=== PATIENT | male | born 1960 | race African-American/Black ===

== ENCOUNTER 2016-08-20 10:27 | Outpatient (CLI) ==
--- NOTE | 2016-08-20 11:24 | DI ---
EXAM: Chest two views HISTORY: Cough COMPARISON: 06/15/2013 TECHNIQUE: Two views of the chest were performed FINDINGS: The lungs are clear. There is no pleural effusion or pneumothorax. The heart is normal in size. The mediastinal contour is normal. There are no acute abnormalities of the bones. IMPRESSION: No acute cardiopulmonary process.
== END 2016-08-20 10:28 | disposition home or self-care (01) ==
LOC: RAD 10:27
PROVIDERS: ATTEND Emergency Medicine
DX: R05 Cough (principal)

== ENCOUNTER 2017-12-22 10:08 | Observation (INO) ==
[2017-12-22] MEDS ORDERED: SOLU-CORTEF 250 MG IVP STA (11:00)
[2017-12-22] MEDS ORDERED: TORADOL IVP STA (11:00)
[2017-12-22] MEDS: DEXTROSE 5%-1/2NS IV SOLUTION 1,000 ML IV SCH ×2 (11:50→20:23)
[2017-12-22] MEDS: DOXYCYCLINE HYCLATE PO SCH ×2 (11:58→20:22)
[2017-12-22 12:15] VITALS: BMI 33.9
--- NOTE | 2017-12-22 14:32 | DI ---
Exam: Two views of the chest. Comparison: 08/20/2016. Reason for exam: Weakness. FINDINGS: No pneumothorax, pleural effusion, or focal consolidation. The cardiac silhouette is not enlarged. The imaged osseous structures appear grossly unremarkable without acute fracture. Impression: No acute cardiopulmonary process.
[2017-12-22] MEDS ORDERED: ULTRAM PO STA (21:53)
[2017-12-22] MEDS ORDERED: NORVASC PO STA (21:54)
[2017-12-22] MEDS ORDERED: VASOTEC IV IVP STA (21:54)
[2017-12-22] MEDS ORDERED: TORADOL ONE (22:53)
[2017-12-22] MEDS: TORADOL IVP SCH (23:02)
[2017-12-23] MEDS: DEXTROSE 5%-1/2NS IV SOLUTION 1,000 ML IV SCH (04:20)
[2017-12-23] MEDS ORDERED: TORADOL IVP PRN (05:58)
[2017-12-23] MEDS: TORADOL IVP SCH (06:13)
[2017-12-23] MEDS: DOXYCYCLINE HYCLATE PO SCH (08:25)
--- NOTE | 2017-12-23 08:45 | PCM.PROG ---
Attending Provider: ATTENDING PROVIDER: Dr. PARVEEN CROSS This patient is seen with Citlaly Eldridge, Nurse Practitioner. DATE OF SERVICE: 12/23/17 SUBJECTIVE: This 57 year old BLACK/ M was hospitalized 12/22/17. The patient is alert, lying in bed. He states myalgia is much better. Dr. Cross has done echo today. Evaluation for possible rhabdomyolysis has been negative. No evidence of any muscle breakdown. The patient states he would like to return home. He will continue to hold cholesterol medications Lipitor and Tricor. REVIEW OF SYSTEMS: CONSTITUTIONAL: Positive for fatigue. No night sweats. No malaise, lethargy. No fever or chills. HEENT: Eyes: No visual changes. No eye pain. No eye discharge. ENT: No runny nose. No epistaxis. No sinus pain. No odynophagia. No congestion. RESPIRATORY: No cough, no congestion. No hemoptysis. No shortness of breath. CARDIOVASCULAR: No angina symptoms. No CHF symptoms. No atypical chest pain for CAD. No palpitations. No orthopnea.. GASTROINTESTINAL: No abdominal pain. No nausea or vomiting. No diarrhea or constipation. No hematemesis. No hematochezia. GENITOURINARY: No urgency. No frequency. No dysuria. No hematuria. No obstructive symptoms. No discharge. No pain. No significant abnormal bleeding. MUSCULOSKELETAL: Positive for myalgia. NEUROLOGICAL: Awake, alert, oriented to time, place and person. No headache. No neck pain. No syncope. No seizures. No dizziness. PSYCHIATRIC: Not anxious. No depression. No suicidal thoughts. No homicidal thoughts. SKIN: No rash. No lesions. No wounds. ENDOCRINE: No unexplained weight loss. No weight gain. HEMATOLOGIC/LYMPHATIC: No anemia. No purpura. No petechiae. No prolonged or excessive bleeding. No palpable lymph nodes. PHYSICAL EXAMINATION: GENERAL: The patient is awake, alert and oriented, lying in bed in no distress. VITAL SIGNS: Temperature 97.5 F, Pulse 82, Respiratory Rate 23, BP 142/89, Pulse Ox 97% HEENT: Head normocephalic, atraumatic. Eyes: Extraocular muscles are intact. Pupils are equal, round and reactive to light and accommodation. Ears: No lesions. Nose appeared normal. Throat: No exudate or erythema. NECK: Supple. No JVD, no carotid bruit. No lymphadenopathy or thyromegaly. LUNGS: Diminished breath sounds bilaterally. Clear to auscultation. Percussion note normal. Chest symmetrical. HEART: S1, S2, no S3. No murmurs. No cyanosis or clubbing. No ascites. Pulses: Dorsalis pedis and posterior tibial pulses +1 to +2 both sides. ABDOMEN: Soft. Non-tender. Bowel sounds active. No CVA tenderness. No mass felt. EXTREMITIES: No edema. Full range of motion of all extremities, equal. NEUROLOGIC: No focal deficit. Cranial nerves II through XII are grossly intact. No headache, no double vision or headache. SKIN: Not dry. Intact. Turgor-normal. LYMPHATIC: No palpable lymph nodes/no lymphedema. MUSCULOSKELETAL: Normal joints with no swelling. Muscle tone is normal. LAB REVIEW: 12/23/17 04:30 12/23/17 04:30 12/23/17 04:30: Sodium 138, Potassium 4.0, Chloride 106, Carbon Dioxide 25, Anion Gap 11.0, BUN 13, Creatinine 0.84, Estimated GFR (MDRD) 114.00, BUN/ Creatinine Ratio 15.47, Glucose 117 H, Calcium 8.9, Total Bilirubin 0.4, AST 31 , ALT 37, Alkaline Phosphatase 46 L, Total Creatine Kinase 69, Total Protein 6.6 , Albumin 3.4, Globulin 3.2, Albumin/Globulin Ratio 1.06 12/23/17 04:30: WBC 5.02, RBC 4.21 L, Hgb 13.1 L, Hct 39.0 L, MCV 92.6, MCH 31.1 H, MCHC 33.6, RDW Coeff of Andreina 12.8, Plt Count 168, Immature Gran % (Auto) 0.2, Neut % (Auto) 60.6, Lymph % (Auto) 25.1, Frio % (Auto) 12.7 H, Eos % (Auto ) 1.0, Baso % (Auto) 0.4, Immature Gran # (Auto) 0.0, Neut # (Auto) 3.0, Lymph # (Auto) 1.3, Frio # (Auto) 0.6, Eos # (Auto) 0.1, Baso # (Auto) 0.0 12/22/17 17:03: Urine Color Yellow, Urine Clarity Clear, Urine pH 7.0, Ur Specific Hastings 1.015, Urine Protein Negative, Urine Glucose (UA) Negative, Urine Ketones Negative, Urine Blood Negative, Urine Nitrite Negative, Urine Bilirubin Negative, Urine Urobilinogen 1.0, Ur Leukocyte Esterase Negative 12/22/17 11:15: ESR 7 12/22/17 11:15: Sodium 136, Potassium 3.7, Chloride 103, Carbon Dioxide 23, Anion Gap 13.7, BUN 10, Creatinine 0.83, Estimated GFR (MDRD) 116.00, BUN/ Creatinine Ratio 12.04, Glucose 98, Calcium 9.2, Total Bilirubin 0.6, AST 37, ALT 39, Alkaline Phosphatase 52, Total Creatine Kinase 77, Total Protein 6.9, Albumin 3.7, Globulin 3.2, Albumin/Globulin Ratio 1.16 12/22/17 11:15: WBC 4.26, RBC 4.25 L, Hgb 13.3 L, Hct 38.7 L, MCV 91.1, MCH 31.3 H, MCHC 34.4, RDW Coeff of Andreina 12.9, Plt Count 172, Immature Gran % (Auto) 0.5, Neut % (Auto) 52.3, Lymph % (Auto) 28.6, Frio % (Auto) 14.3 H, Eos % (Auto ) 3.1, Baso % (Auto) 1.2, Immature Gran # (Auto) 0.0, Neut # (Auto) 2.2, Lymph # (Auto) 1.2, Frio # (Auto) 0.6, Eos # (Auto) 0.1, Baso # (Auto) 0.1 12/22/17 11:15: Lactic Acid 9.8 12/22/17 11:15: TSH 0.807 12/22/17 11:15: Puncture Site R rad, O2 Saturation 96.0, ABG pH 7.477 H, ABG pCO2 35.5, ABG pO2 74.0 L, ABG HCO3 26.2 H, ABG Total CO2 27, ABG Base Excess 3 H, Gabriel Test +, FiO2 % 21.0 ASSESSMENT: 1. Heat exhaustion 2. Dehydration 3. Severe myalgia 4. Dyslipidemia 5. Severe myalgia 6. Smoker PLAN: 1. Discharge home. 2. Hold Lipitor and Tricor for at least one week. 3. No work until released by Dr. Cross. 4. Will see Dr. Cross in his office on Wednesday. 5. Continue home medications with increased fluids. Plan and coordination of the patient's care discussed in the presence of Ham Pumper and nurse. CONDITION: Stable SCRIBED BY: RAINA ARZOLA [employer] scribed while in presence of service performed by Dr. Cross/Citlaly Eldridge APRN on 12/23/17 ([id number])
[2017-12-23] MEDS ORDERED: COZAAR PO SCH (09:00)
[2017-12-23] MEDS ORDERED: LEXAPRO PO SCH (09:00)
[2017-12-23] MEDS ORDERED: ZEBETA PO SCH (09:00)
[2017-12-23] MEDS ORDERED: NON-FORMULARY MEDICATION (Escitalopram Oxalate [Escitalopram Oxalate] 20 MG) PO SCH (09:00)
--- NOTE | 2017-12-23 10:01 | HP ---
DATE OF SERVICE: 12/22/17 REASON FOR HOSPITALIZATION/HISTORY OF PRESENT ILLNESS: Myalgia started 3-6 days. Muscle ache all over x 24 hours, bad. Mainly yesterday. Left chest post axillary arch-insect bite. Weakness/Tired x2 weeks with 1/2cm scab with redness. Last night 9 on scale of 1-10. PAST MEDICAL HISTORY: Cardiac disorders Hypotension Depression Diabetes Mellitus Dyslipidemia Osteoarthritis Obesity Tobacco use PAST SURGICAL HISTORY: Childhood tonsils Vasectomy REVIEW OF SYSTEMS: CONSTITUTIONAL: No fever, no fatigue. HEENT: No sinus drainage, no sore throat. RESPIRATORY: No cough, no congestion. CARDIOVASCULAR: No atypical chest pain for coronary artery disease. No angina , CHF symptoms, palpitations or shortness of breath. GASTROINTESTINAL: No melena or abdominal pain. No GERD. No appetite, thia am not good appetite. GENITOURINARY: No hematuria, no prostatism, no polyuria. DIRECT SUPPORT WORKER: No blackout, no dizziness, no headache, no double vision. Myalgia. MUSCULOSKELETAL: Osteoarthritis pain, no joint swelling. ENDOCRINE: No weight loss, no weight gain. SKIN: Not dry, no rash. PSYCHIATRIC: Not anxious, no depression, no suicidal thoughts, no homicidal thoughts. SOCIAL HISTORY: Marital Status: , 22 years 3 children 2 boys; 29 and 26 and one daughter 21. Alcohol Usage: Yes 2 beers a week Tobacco Usage: Yes one pack per day. FAMILY HISTORY: Father -unknown Mother -auto accident Brother/Sister- The patient was adopted unsure of siblings. MEDICATIONS: Losartan 100mg PO daily Tricor 145mg PO daily Lexapro 20mg PO daily Aspirin 81mg PO daily Lipitor 80mg PO daily Zebeta 10mg PO daily Bonny PO daily ALLERGIES: Penicillin Wellbutrin PHYSICAL EXAMINATION: V/S: Pulse 87, blood pressure 162/100, temperature 98.2, oxygen saturation 97%. GENERAL APPEARANCE: Oriented times three. HEENT: Normal. NECK: No JVP, no bruits. RESPIRATORY: Lungs are clear. Mild redness with insect bite on left post axillary arch. CARDIOVASCULAR: S1, S2, no S3, no murmurs. No cyanosis, clubbing. No ascites. GI/ABDOMEN: No tenderness. Bowel sounds are active. EXTREMITIES: edema, pulses +1, equal. DIRECT SUPPORT WORKER: Deep tendon reflexes, sensory, motor and gait all normal. RECTAL: 10/14 Dr. Tolentino/PROSTATE: 03-17(1.0) . LABS: CK 77, Alkaline phosphatase normal, hgb 13, hct 38, WBC 4,200 normal differential, sedrate 7, TSH normal, Lactic acid normal, Creatinine 0.8, BUN 10 , liver enzymes are negative. ABG pO2 74, pCO2 35, pH 7.47 with 96% saturation. ASSESSMENT: 1. Severe Myalgia-several day, rule out Rhabdo- Ankles, calf, shoulders/weakness 2. Insect bite left chest, post axillary line- 2 weeks. Herpes Zoster 3. All night pain-aching 8to 9 on scale 1-10 4. Diabetes Mellitus type II, A1c 5.6 on 08/22 5. Hypertension 6. Dyslipidemia 7. Depression 8. Osteoarthritis 9. Obesity, BMI 10. Hyperglycemia 11.Smoker PLAN: 1. Admit observation 2. Diet regular 3. Sed rate 4. Telemetry x 24 hour 5. CBC, CMP, CK and TSH today 6. ABG 7. Lactic acid level 8. X-ray chest, today 9. EKG, today 10.1000 cc D5 1/2 normal saline 11.Doxycycline 100mg PO twice a day 12.Blood cultures x2 13.Lyme screening 14.Daily CBC, CMP and CK level 15.U/A 16.Toradol 30mg IV now 17.125mg Solu-Cortef IV times one 18.Continue all home medication except Lipitor and Tricon TIME SPENT: More than 70 minutes. MTDD
[2017-12-23 10:17] VITALS: BP 158/95; TEMP 97.9
--- NOTE | 2017-12-24 09:14 | ECHO2D ---
Date of Exam: 12/23/17 Ordering Physician: DR. PARVEEN CROSS Room #: 108 Reason for Echo: WEAKNESS, HTN, SOB, DYSLIPIDEMIA M-Mode Normal Adult Results LV Dimensions Normal Adult Results AoV Opening excursions >1.6 >1.6 LVEDD-base- 3.5-5.8 3.9 Ao root dimensions 2.0-3.7 3.7 LVESD-base- 3.1-4.6 L. Atrium dimensions 1.9-3.8 4.4 Post. Wall thickness 0.8-1.1 1.2 IV septum (thickness) 0.7-1.2 1.9 Post. Wall excursion 0.72-1.3 NORMAL Septal motion NORMAL Systolic motion R. Ventricular cavity 1.5-2.0 NORMAL LVEF 60% 58% Paradoxical septal wall motion NORMAL 2-D : 2-D M Mode Echocardiogram was performed using apical four chamber and left parasternal long and short axis views. Mitral, tricuspid and aortic valves appear to be normal. Contractility of the left ventricle seems to be normal, so is the cavity size. Enlarged left atrial cavity. Aortic root appears to be normal. There is no pericardial effusion. There is no thrombus noted in the left ventricular or left aortic cavity. No mitral valve prolapse noted. M-MODE: MV: NORMAL AV: NORMAL TV: NORMAL PV: CHAMBER SIZE: ENLARGED LEFT ATRIAL CAVITY WALL MOTION: NORMAL PERICARDIUM: NORMAL INTERPRETATION: 1. LEFT VENTRICULAR HYPERTROPHY WITH ENLARGED LEFT ATRIAL CAVITY 2. NORMAL LEFT VENTRICULAR CONTRACTILITY 3. NORMAL VALVES MTDD
--- NOTE | 2017-12-27 11:10 | DS ---
DATE OF SERVICE: 12/23/17 FINAL DIAGNOSIS: 1. Myalgia with fatigue and weakness most likely from heat exhaustion 2. Insect bite left chest, post axillary line-2 weeks. Herpes Zoster 3. All night pain-aching 4. Diabetes Mellitus type II, A1c 5.6 on 08/22 5. Hypertension 6. Dyslipidemia 7. Depression 8. Osteoarthritis 9. Obesity, BMI 10.Hyperglycemia 11.Smoker. DISCHARGE INSTRUCTIONS: Discharge home. No work until released by Dr. Jaffe. An appointment is scheduled with Dr. Jaffe on 12/27/17 at 2:30pm. Do not take Tricor or Lipitor for one week. MEDICATIONS AT DISCHARGE: Losartan 100mg PO daily Bisoprolol 10mg PO daily Lexapro 20mg PO daily NEW PRESCRIPTIONS: Norvasc 5mg take one tablet at bedtime for hypertesnion next dose tonight Doxycycline 100mg take one tablet twice a day for 7 days (antibiotics) next dose tonight. DIET INSTRUCTIONS: Heart healthy ACTIVITY: Resume as tolerated Avoid heat related activity this week-end DISEASE SPECIFIC EDUCATION: Followup Avoid heat HOSPITAL COURSE: Mr. Loredo was hospitalized with severe weakness and pain, generalized myalgia. The patient was given IV fluids. CK level was negative. Sed rate was normal. The patient's cardiac markers were negative and the patient did not have any evidence of mild ascites. His liver profile along with his CBC were normal. He was given IV fluids and steroids. Condition improved in the morning and he felt a lot better. He was given Toradol IV. The patient at the time of discharge was stable. The patient's echo showed LVH with normal LV contractility. The patient was discharged home in stable condition. The patient is advised not to take Lipitor and Tricor until I see him back in 4-5 days. No work until released. Advised to rest and increase fluids. The patient was under observation. TIME SPENT: More than 60 minutes. MTDD
--- NOTE | 2017-12-27 11:11 | PN ---
12/22/17: Level 5 12/23/17: D as in discharge MTDD
--- NOTE | 2017-12-27 11:15 | PN ---
DATE OF SERVICE: 12/23/17 DISCHARGE NOTE SUBJECTIVE: Mr. Loredo was hospitalized with severe weakness and pain, generalized myalgia. The patient was given IV fluids. CK level was negative. Sed rate was normal. The patient's cardiac markers were negative and the patient did not have any evidence of mild ascites. His liver profile along with his CBC were normal. He was given IV fluids and steroids. Condition improved in the morning and he felt a lot better. He was given Toradol IV. The patient at the time of discharge was stable. The patient's echo showed LVH with normal LV contractility. The patient was discharged home in stable condition. The patient is advised not to take Lipitor and Tricor until I see him back in 4-5 days. No work until released. Advised to rest and increase fluids. The patient was under observation. REVIEW OF SYSTEMS: CONSTITUTIONAL: No night sweats. No fatigue, malaise, lethargy. No fever or chills. HEENT: Eyes: No visual changes. No eye pain. No eye discharge. ENT: No runny nose. No epistaxis. No sinus pain. No sore throat. No odynophagia. No congestion. RESPIRATORY: No cough, no congestion. No hemoptysis. No shortness of breath. CARDIOVASCULAR: No angina symptoms. No CHF symptoms. No atypical chest pain for CAD. No palpitations. No orthopnea. GASTROINTESTINAL: No abdominal pain. No nausea or vomiting. No diarrhea or constipation. No hematemesis. No hematochezia. GENITOURINARY: No urgency. No frequency. No dysuria. No hematuria. No obstructive symptoms. No discharge. No pain. No significant abnormal bleeding. MUSCULOSKELETAL: No musculoskeletal pain; no joint swelling. NEUROLOGICAL: No headache. No neck pain. No syncope. No seizures. No dizziness. PSYCHIATRIC: Not anxious. No depression. No suicidal thoughts. No homicidal thoughts. SKIN: No rash. No lesions. No wounds. ENDOCRINE: No unexplained weight loss. No weight gain. HEMATOLOGIC/LYMPHATIC: No anemia. No purpura. No petechiae. No prolonged or excessive bleeding. No palpable lymph nodes. PHYSICAL EXAMINATION: VITAL SIGNS: Blood pressure 142/89, pulse 82, respiratory rate 23, temperature 97.5 and pulse ox 97% HEENT: Head normocephalic, atraumatic. Eyes: Extraocular muscles are intact. Pupils are equal, round and reactive to light and accommodation. Ears: No lesions. Nose appeared normal. Throat: No exudate or erythema. NECK: Supple. No JVD, no carotid bruit. No lymphadenopathy or thyromegaly. LUNGS: Clear to auscultation. Percussion note normal. Chest symmetrical. HEART: S1, S2, no S3. No murmurs. No cyanosis or clubbing. No ascites. Pulses: Dorsalis pedis and posterior tibial pulses +1 to +2 both sides. ABDOMEN: Soft. Nontender. Bowel sounds active. No CVA tenderness. No mass felt. EXTREMITIES: No edema. Full range of motion of all extremities, equal. NEUROLOGIC: No focal deficit. Cranial nerves II through XII are grossly intact. No headache, no double vision or headache. SKIN: Not dry. Intact. Turgor - normal. LYMPHATIC: No palpable lymph nodes/no lymphedema. MUSCULOSKELETAL: Normal joints with no swelling. Muscle tone is normal. ASSESSMENT: 1. Myalgia with fatigue and weakness most likely from heat exhaustion 2. Insect bite left chest, post axillary line-2 weeks. Herpes Zoster 3. All night pain-aching 4. Diabetes Mellitus type II, A1c 5.6 on 08/22 5. Hypertension 6. Dyslipidemia 7. Depression 8. Osteoarthritis 9. Obesity, BMI 10.Hyperglycemia 11.Smoker. PLAN: 1. Discharge home. 2. No work until released by Dr. Jaffe. 3. An appointment is scheduled with Dr. Jaffe on 12/27/17 at 2:30pm. 4. Do not take Tricor or Lipitor for one week. TIME SPENT: More than 30 minutes. Plan and coordination of the patient's care discussed in the presence of nurse. DAPHNEY
== END 2017-12-23 10:32 | disposition home or self-care (01) ==
LOC: MEDSURG A 10:08
PROVIDERS: ADMIT Internal Medicine; ATTEND Internal Medicine
DX: M79.1 Myalgia (principal); R53.1 Weakness; R53.83 Other fatigue; T67.3XXA Heat exhaustion, anhydrotic, initial encounter; S20.362A Insect bite (nonvenomous) of left front wall of thorax, initial encounter; E11.65 Type 2 diabetes mellitus with hyperglycemia; I10 Essential (primary) hypertension; E78.5 Hyperlipidemia, unspecified; F32.9 Major depressive disorder, single episode, unspecified; M19.90 Unspecified osteoarthritis, unspecified site; E66.9 Obesity, unspecified; F17.210 Nicotine dependence, cigarettes, uncomplicated; W57.XXXA Bitten or stung by nonvenomous insect and other nonvenomous arthropods, initial encounter
CPT/HCPCS: 36415; 80053; 81001; 82550; 82803; 83605; 84443; 85025; 85651; 86617; 86757; 87040; 87070; 93005; 93010

== ENCOUNTER 2023-01-13 11:15 | Observation (INO) ==
[2023-01-13] MEDS ORDERED: ZOFRAN 4 MG/2 ML IVP ONE (11:30)
[2023-01-13] MEDS ORDERED: MORPHINE 4 MG/ML SYRINGE IVP ONE (11:31)
--- NOTE | 2023-01-13 11:35 | ED.PDOC ---
General ED Provider: Dr. LORI CORREIA DO Chief Complaint: Abdominal Pain Stated Complaint: Melissa is a 62 yo M here for 30 minutes of L sided abdominal pain Patient arrives afebrile with stable blood pressure, by POV with SO He reports he is a 1 ppd smoker He reprots getting in and out of the car caused 02/11 storng L sided abdominal pain He has a known umbilical henria No hx of abdominal surgeries No falls or injuries No recent surgeries No sick contacts Melissa unsure of cause No radiaiton of pain No nausea, no vomiting, no dysuria, no diaphoresis Time Seen by Provider: 01/13/23 11:20 Information Source: Patient Primary Care Provider: PARVEEN CROSS MD Nursing and Triage Documentation Reviewed and Agree: Yes Does patient meet sepsis criteria?: No System Inflammatory Response Syndrome: Not Applicable Sepsis Protocol: For patient's 13 years and over: Temp is 96.8 and below OR 101 and greater Pulse >90 BPM Resp >20/minute Acutely Altered Mental Status Are patient's symptoms suggestive of a new infection, such as: -Pneumonia -Skin, Soft Tissue -Endocarditis -UTI -Bone, Joint Infection -Implantable Device -Acute Abdominal Infection -Wound Infection -Meningitis -Blood Stream Catheter Infection -Unknown Review of Systems Review Of Systems Constitutional: Denies Chills or Fever Eyes: Denies Blindness, Blurred vision or Vision change Ears, Nose, Mouth, Throat: Denies Ear pain, Ear discharge or Nose pain Respiratory: Denies Cough, Orthopnea or Shortness of Breath Cardiac: Denies Chest pain, Edema or Irregular heart rate GI: Reports Abdominal pain; Denies Constipated or Diarrhea : Denies Dysuria, Discharge or Frequency Musculoskeletal: Denies Back pain, Joint pain or Joint swelling Skin: Denies Bruising, Dryness or Lumps Neurological: Denies Anxiety or Depressed Endocrine: Denies Excessive sweating or Flushing Hematologic/Lymphatic: Reports No symptoms All Other Systems: Reviewed and Negative [facility] Medical History (Updated 01/13/23 @ 13:22 by LORI CORREIA DO) Depression F32.9 - Major depressive disorder, single episode, unspecified (ICD-10) Mumps B26.9 - Mumps without complication (ICD-10) Varicella B01.9 - Varicella without complication (ICD-10) Family History MATERNAL GRANDMOTHER Diabetes Social History Smoking and tobacco status: Never smoker Alcohol intake: never Substance use type: does not use Special sheila needs: No Agree to transfusion: Yes Adopted: No Caregiver/support person: No Foster care: No Household members: spouse Housing: house Marital status: M Lives independently: Yes Number of children: 3 Financial difficulty paying for basics: not very hard service: Yes Current occupational status: employed Pets and animals: No History of recent travel: No Sexually active: Yes Do you think of yourself as: straight/heterosexual Current gender identity: male Seatbelt use: always Drives intoxicated or rides with intoxicated straddle bug driver: No Water heater temperature set < 120 degrees: Yes Working smoke detector in home: Yes Fire extinguisher in home: Yes Carbon monoxide detector in home: Yes Firearms in home: No Surgical History H/O vasectomy Hx of tonsillectomy Physical Exam Physical Exam Appearance: Reports Well-appearing and Well-nourished Ill-appearing: Not Applicable Pain Distress: Moderate Eyes: Reports JEISON, EOMI and Conjunctiva clear ENT: Reports Ears normal, Nose normal and Other (Poor dentition) Neck: Supple Respiratory: Reports Airway patent and Breath sounds clear Cardiovascular: Reports RRR and Pulses normal; Denies No rub GI/: Reports Soft and Other (Negative hernandes sign, no fluid wave no [place] ttp, umbilical hernia ttp, L abd ttp, no rebound, there is guarding.) Musculoskeletal: Reports Normal strength and ROM intact Skin: Reports Warm and Dry Neurological: Reports Sensation intact and Motor intact Psychiatric: Reports Affect appropriate and Mood appropriate Interpretation EKG Interpretation EKG Interpretation By: ED Physician Time of EKG #1: 12:12 Rate: Normal Rhythm: Sinus Ectopy: None [place]: NL ST Segment: Other (Benign early repol) Interpretation: No stemi, nsr rate 75, no qt prolongation Critical Care Note Critical Care Note Total Critical Care Time (mins): 0 Course Course 01/13/23 11:40 01/13/23 11:40 Orders, Labs, Meds: Lab Review 01/13/23 11:40 WBC 5.96 RBC 4.77 Hgb 15.2 Hct 45.1 MCV 94.5 H MCH 31.9 H MCHC 33.7 RDW Coeff of Andreina 13.2 Plt Count 215 Immature Gran % (Auto) 0.2 Neut % (Auto) 35.3 L Lymph % (Auto) 44.8 [place] % (Auto) 12.6 H Eos % (Auto) 5.4 Baso % (Auto) 1.7 Neut # (Auto) 2.1 Lymph # (Auto) 2.7 [place] # (Auto) 0.8 Eos # (Auto) 0.3 Baso # (Auto) 0.1 Immature Gran # (Auto) 0.0 Sodium 136.9 Potassium 4.29 Chloride 103.3 Carbon Dioxide 27.5 Anion Gap 10.39 BUN 14.9 Creatinine 0.91 Estimated GFR (MDRD) 102.00 BUN/Creatinine Ratio 16.37 Glucose 96.4 Lactic Acid 0.97 Calcium 9.97 Total Bilirubin 0.73 AST 28.8 ALT 24.4 Alkaline Phosphatase 41.8 L Troponin I < 0.012 Total Protein 8.33 H Albumin 5.16 H Globulin 3.17 Albumin/Globulin Ratio 1.62 Lipase 90.5 Orders Category Date Time Status OBSERVATION [PLACE PATIENT OBSERVATION] .TO MEDSURG ADMISSION 01/13/23 13:43 Ordered (NON-MONITORED BED) EKG-(ED ONLY) Stat CARDIO 01/13/23 11:35 Completed NPO REMINDER: IMAGING ONCE CARE 01/13/23 11:30 Completed NPO REMINDER: IMAGING ONCE CARE 01/13/23 13:43 Ordered Apply Ice [ED APPLY ICE AFFECTED AREA] .ONCE EMERGENCY 01/13/23 11:31 Active CBC W/ AUTO DIFF Stat LAB 01/13/23 11:40 Completed COMPREHENSIVE METABOLIC PANEL Stat LAB 01/13/23 11:40 Completed LACTIC ACID Stat LAB 01/13/23 11:40 Completed LIPASE Stat LAB 01/13/23 11:40 Completed TROPONIN I Stat LAB 01/13/23 11:40 Completed URINALYSIS C & S IF INDICATED Stat LAB 01/13/23 11:30 Uncollected Hydromorphone HCl [Dilaudid 0.5 mg/0.5 ml Syringe] Meds 01/13/23 12:44 Discontinued 0.5 mg IVP ONCE ONE Hydromorphone HCl [Dilaudid 0.5 mg/0.5 ml Syringe] Meds 01/13/23 13:22 Discontinued 0.5 mg IVP ONCE ONE Morphine Sulfate [Morphine 4 mg/ml Syringe] Meds 01/13/23 11:31 Discontinued 4 mg IVP ONCE ONE Ondansetron HCl/Pf [Zofran 4 mg/2 ml] Meds 01/13/23 11:30 Discontinued [address] IVP ONCE ONE CT ABDOMEN/PELVIS W CONTRAST Stat RADS 01/13/23 11:30 Completed US ABDOMEN RT UPPER QUAD [U/S ABDOMEN RT UPPER QUAD] RADS 01/13/23 13:43 Ordered Stat Medications Discontinued Medications Generic Name Dose Route Start Last Admin Trade Name Yoshiq PRN Reason Stop Dose Admin Hydromorphone HCl 0.5 mg 01/13/23 12:44 01/13/23 12:51 Hydromorphone 0.5 Mg/0.5 Ml Syringe IVP 01/13/23 12:45 0.5 mg ONCE ONE Administration Hydromorphone HCl 0.5 mg 01/13/23 13:22 Hydromorphone 0.5 Mg/0.5 Ml Syringe IVP 01/13/23 13:23 ONCE ONE Morphine Sulfate 4 mg 01/13/23 11:31 01/13/23 11:49 Morphine Sulfate 4 Mg/Ml Syringe IVP 01/13/23 11:32 4 mg ONCE ONE Administration Ondansetron HCl 4 mg 01/13/23 11:30 01/13/23 11:48 Ondansetron Hcl/Pf 4 Mg/2 Ml Sdv IVP 01/13/23 11:31 4 mg ONCE ONE Administration Vital Signs: Temp Pulse Resp BP Pulse Ox 01/13/23 11:20 97.5 F L 83 18 149/89 H 94 L patient pain not improved with morphine and small dose of dilaudid Dr. Ld hawk to consider obs overnight for pain control MDM: Patient is a 62 yo M here for abdominal pain Patient afebrile and vitally stable Hx from patient chart review by me 3+ labs and 2 images reviewed by me Patient pain mildly improved after morphine and dilaudid I recommend observation for intractable abdominal pain CT abd shows no acute pathology Consults to [facility] Vo, we plan for GB US study and observation Family and I discussed all findings and plan and agree to observation WDX: Abdominal pain unknown etiology acute condition moderate complexity DDX: I considered incarcerated hernia, appendicitis, perforated viscus but these are less likely SDOH: Patient insured with PCP Will improve with observation stay Discharge Plan Discharge Patient Disposition: PLACED OBSERVATION Discharge Problem: Discomfort, Umbilical hernia without obstruction or gangrene, Tobacco use, Abdominal pain of unknown etiology Did you review [place] LABEL FOL[place] for ALL controlled substances?: Not Applicable ED Provider: LORI CORREIA Physician Progress Note: []
[2023-01-13 11:46] LABS: BASOPHILS # (AUTO) 0.1 K/uL (0-0.2); BASOPHILS % (AUTO) 1.7 % (0.0-3.0); EOSINOPHILS # (AUTO) 0.3 K/ul (0.0-0.7); EOSINOPHILS % (AUTO) 5.4 % (0.0-7.0); HEMATOCRIT 45.1 % (42.0-52.0); HEMOGLOBIN 15.2 g/dl (14.0-18.0); IMMATURE GRANULOCYTE % (AUTO) 0.2 % (0.0-5.0); LYMPHOCYTES # (AUTO) 2.7 K/uL (0.60-3.4); LYMPHOCYTES % (AUTO) 44.8 (10.0-50.0); MEAN CORPUSCULAR HEMOGLOBIN 31.9 pg (27.0-31.0); MEAN CORPUSCULAR HGB CONC 33.7 (31.8-35.4); MEAN CORPUSCULAR VOLUME 94.5 fl (80.0-94.0); MONOCYTES # (AUTO) 0.8 K/uL (0.4-2.0); MONOCYTES % (AUTO) 12.6 (0-10); NEUTROPHILS # (AUTO) 2.1 K/ul (2.0-6.9); NEUTROPHILS % (AUTO) 35.3 % (42.2-75.2); PLATELET COUNT 215 10^3/uL (140-440); RDW COEFFICIENT OF VARIATION 13.2 % (11.6-14.8); RED BLOOD COUNT 4.77 10^6/ul (4.70-6.10); WHITE BLOOD COUNT 5.96 K/ul (4.2-10.2)
[2023-01-13 12:01] LABS: ALANINE AMINOTRANSFERASE 24.4 U/L (0-50); ALBUMIN 5.16 g/dL (3.5-5.0); ALKALINE PHOSPHATASE 41.8 U/L (56-119); ASPARTATE AMINO TRANSFERASE 28.8 U/L (17-59); BILIRUBIN,TOTAL 0.73 mg/dL (0.2-1.3); BLOOD UREA NITROGEN 14.9 mg/dL (9-20); CALCIUM 9.97 mg/dL (8.4-10.2); CARBON DIOXIDE 27.5 mmol/L (22-30.0); CHLORIDE 103.3 mmol/L (98-107); CREATININE 0.91 mg/dL (0.60-1.10); GLUCOSE 96.4 mg/dL (74-106); LIPASE 90.5 U/L (23-300); POTASSIUM 4.29 mmol/L (3.5-5.1); SODIUM 136.9 mmol/L (134.5-145); TOTAL PROTEIN 8.33 g/dL (6.3-8.2)
[2023-01-13] MEDS ORDERED: DILAUDID 0.5 MG/0.5 ML SYRINGE IVP ONE ×2 (12:44→13:22)
--- NOTE | 2023-01-13 13:02 | CT ---
EXAM: CT ABDOMEN PELVIS WITH CONTRAST HISTORY: Abdominal pain with history of umbilical hernia COMPARISON: None TECHNIQUE: Serial axial images of the abdomen pelvis were performed after 75 mL is of Omnipaque IV c ontrast was administered. These were obtained from the lung bases through the inferior pelvis. FINDINGS: The lung bases are clear. The liver is unremarkable. The gallbladder is normal. The adrenal glands are normal. There are two small low attenuation right renal lesions suggestive of cyst. The kidneys are unremarkable. Spleen is normal. Pancreas is unremarkable. The stomach is minimally distended. Small bowel in the abdomen pelvis is unremarkable. The appendix is normal. The colon is unremarkabl e. Urinary bladder is mildly distended. The prostate is unremarkable. There is no free air or free fluid. There is atherosclerotic disease. The osseous structures demonstrate mild degenerative dise ase. There is a fat-containing umbilical hernia with defect measuring 1.7 cm. IMPRESSION: 1. Fat containing umbilical hernia with no ground-glass or evidence of incarceration. 2. Small right renal cysts. 3. Calcific atherosclerotic disease. All CT scans are performed using dose optimization techniques as appropriate to the performed exam an d include at least one of the following: Automated exposure control, adjustment of the mA and/or kV according t o size, and the use of iterative reconstruction technique.
[2023-01-13] MEDS ORDERED: TYLENOL PO PRN (13:58)
[2023-01-13] MEDS ORDERED: ZOFRAN 4 MG/2 ML IVP PRN (13:58)
--- NOTE | 2023-01-13 14:15 | US ---
EXAM: ULTRASOUND OF THE RIGHT UPPER QUADRANT (LIMITED ABDOMEN) HISTORY: Right upper quadrant abdominal pain. TECHNIQUE: Sonography of the right upper quadrant of the abdomen was performed. Color Doppler imagin g and spectral Doppler imaging of the portal vein was also performed. Images were obtained and store d in a permanent archive. COMPARISON: None. FINDINGS: Pancreas: Normal sonographic appearance of the head and body. Tail is partially obscured. Liver: The liver measures 11.7cm. No focal hepatic lesion. Main portal vein: Normal hepatopetal flow. Gallbladder: No cholelithiasis. No gallbladder wall thickening. Negative sonographic Krishnamurthy's sign. Common bile duct measures 9.6 mm. Aorta: Visualized portion without aneurysmal dilatation. IVC: Patent on color doppler. No abnormality on limited robins scale image. Other: No ascites. The right kidney measures 9.2 x 4.5 x 3.4 cm. No stones or hydronephrosis. IMPRESSION: 1. Normal right upper quadrant abdomen ultrasound.
[2023-01-13] MEDS ORDERED: MYLICON PO ONE (14:32)
[2023-01-13] MEDS ORDERED: SOLU-MEDROL 125 MG IVP ONE (15:14)
[2023-01-13 15:19] LABS: CHOLESTEROL 212.3 mg/dL (0-200); HDL CHOLESTEROL 51.5 mg/dL (35-60); TRIGLYCERIDES 196.6 mg/dL (0-150)
--- NOTE | 2023-01-13 15:29 | PCM ---
Date of Service Date Seen by Provider: 01/13/23 Time Seen by Provider: 15:00 Admit Day/Time Admission Date: 01/13/23 Reason for Admission Chief Complaint: INTRACTABLE ABDOMINAL PAIN Hospital Provider Hospital Provider: KAELYN HINDS, [facility] [place] Care Physician Primary Care Physician: PARVEEN JAFFE MD History of Present Illness History of Present Illness: 62-year-old male presented to the ER with complaints of lower abdominal pain. Patient states that he developed the pain suddenly at rest after working. Describes the pain as sharp and stabbing. It is intermittent. No aggravating or alleviating factors. States that he works for the [employer] and is very active. 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 Patient has a history of an umbilical hernia x10 years. States that he has seen a surgeon in the past but the surgeon told him that it would be more cosmetic than medical at that time because he was not having any problems and told him to come back when it did become an issue. He denies any fever, nausea, vomiting, belching, hiccups, or gas. Also denies any shortness of breath, chest pain, back pain, flank pain. Denies any urinary symptoms. He was given a dose of morphine in the ER which did not control his pain. He was then given a dose of Dilaudid that mildly improved his pain but pain is still present at this time. Case Discussed With Case Discussed With: Patient's case was discussed with the ER Physicians, Dr. Zaragoza. [facility] Medical History (Updated 01/13/23 @ 15:16 by KAELYN HINDS) Chronic kidney disease (CKD) stage G2/A1, mildly decreased glomerular filtration rate (GFR) between 60-89 mL/min/1.73 square meter and albuminuria creatinine ratio less than 30 mg/g N18.2 - Chronic kidney disease, stage 2 (mild) (ICD-10) COPD (chronic obstructive pulmonary disease) J44.9 - Chronic obstructive pulmonary disease, unspecified (ICD-10) Depression F32.9 - Major depressive disorder, single episode, unspecified (ICD-10) Dyslipidemia E78.5 - Hyperlipidemia, unspecified (ICD-10) HTN, goal below 130/80 I10 - Essential (primary) hypertension (ICD-10) Mumps B26.9 - Mumps without complication (ICD-10) Osteoarthritis M19.90 - Unspecified osteoarthritis, unspecified site (ICD-10) Tobacco use Z72.0 - Tobacco use (ICD-10) Umbilical hernia without obstruction or gangrene K42.9 - Umbilical hernia without obstruction or gangrene (ICD-10) Varicella B01.9 - Varicella without complication (ICD-10) Surgical History H/O vasectomy Z98.52 - Vasectomy status (ICD-10) Hx of tonsillectomy Z90.89 - Acquired absence of other organs (ICD-10) Family History MATERNAL GRANDMOTHER Diabetes Social History Smoking and tobacco status: Current some day smoker Alcohol intake: never Substance use type: does not use Special sheila needs: No Agree to transfusion: Yes Adopted: No Caregiver/support person: No Foster care: No Household members: spouse Housing: house Marital status: M Lives independently: Yes Number of children: 3 Financial difficulty paying for basics: not very hard service: Yes Current occupational status: employed Pets and animals: No History of recent travel: No Sexually active: Yes Do you think of yourself as: straight/heterosexual Current gender identity: male Seatbelt use: always Drives intoxicated or rides with intoxicated taxi driver: No Water heater temperature set < 120 degrees: Yes Working smoke detector in home: Yes Fire extinguisher in home: Yes Carbon monoxide detector in home: Yes Firearms in home: No Allergies Allergies Allergy/AdvReac Type Severity Reaction Status Date / Time Penicillins Allergy HIVES Verified 01/13/23 11:31 bupropion [From Wellbutrin] AdvReac Rash Verified 01/13/23 11:31 Current Medications Home Medications amlodipine 5 mg tablet (Norvasc) 5 mg PO BEDTIME #90 tabs 09/25/22 [Rx Confirmed 01/13/23 Last Taken 01/13/23] atorvastatin 80 mg tablet 80 mg PO QDAY #90 tabs 09/25/22 [Rx Confirmed 01/13/23 Last Taken 01/13/23] bisoprolol fumarate 5 mg tablet 10 mg PO DAILY #90 tabs 09/25/22 [Rx Confirmed 01/13/23 Last Taken 01/13/23] escitalopram oxalate 20 mg tablet 20 mg PO DAILY #90 tabs 09/25/22 [Rx Confirmed 01/13/23 Last Taken 01/13/23] fenofibrate nanocrystallized 145 mg tablet 145 mg PO QDAY #90 tabs 09/25/22 [Rx Confirmed 01/13/23 Last Taken 01/13/23] losartan 100 mg tablet 100 mg PO DAILY #90 tabs 09/25/22 [Rx Confirmed 01/13/23 Last Taken 01/13/23] Home Acetaminophen (Acetaminophen 325 Mg Tablet) 650 mg PO Q4H PRN PRN Reason: Mild Pain Amlodipine Besylate (Amlodipine Besylate 5 Mg Tablet) 5 mg PO BEDTIME MICHAEL Atorvastatin Calcium (Atorvastatin Calcium 20 Mg Tablet) 80 mg PO QDAY [facility] Bisoprolol Fumarate (Bisoprolol Fumarate 5 Mg Tablet) 10 mg PO DAILY [facility] Escitalopram Oxalate (Escitalopram Oxalate 10 Mg Tablet) 20 mg PO DAILY [facility] Ketorolac Tromethamine (Ketorolac Tromethamine 15 Mg/Ml Vial) 15 mg IVP Q6HR PRN PRN Reason: Pain Stop: 01/17/23 14:00 Losartan Potassium (Losartan Potassium 100 Mg Tablet) 100 mg PO DAILY [facility] Methylprednisolone Sodium Succinate (Methylprednisolone Sod Succ/Pf 125 Mg/2 Ml Vial) 40 mg IVP ONCE ONE Stop: 01/13/23 15:15 Non-Formulary Medication (Fenofibrate Nanocrystallized) 145 mg PO QDAY [facility] Ondansetron HCl (Ondansetron Hcl/Pf 4 Mg/2 Ml Sdv) 4 mg IVP Q6H PRN PRN Reason: Nausea / Vomiting Simethicone (Simethicone 80 Mg Tab.Chew) 160 mg PO ONCE ONE Stop: 01/13/23 14:33 Discontinued Medications Hydromorphone HCl (Hydromorphone 0.5 Mg/0.5 Ml Syringe) 0.5 mg IVP ONCE ONE Stop: 01/13/23 12:45 Last Admin: 01/13/23 12:51 Dose: 0.5 mg Hydromorphone HCl (Hydromorphone 0.5 Mg/0.5 Ml Syringe) 0.5 mg IVP ONCE ONE Stop: 01/13/23 13:23 Last Admin: 01/13/23 14:00 Dose: Not Given Morphine Sulfate (Morphine Sulfate 4 Mg/Ml Syringe) 4 mg IVP ONCE ONE Stop: 01/13/23 11:32 Last Admin: 01/13/23 11:49 Dose: 4 mg Ondansetron HCl (Ondansetron Hcl/Pf 4 Mg/2 Ml Sdv) 4 mg IVP ONCE ONE Stop: 01/13/23 11:31 Last Admin: 01/13/23 11:48 Dose: 4 mg Review of Systems Constitutional: Reports No symptoms Head: Reports Normocephalic and Atraumatic Eyes: Reports No symptoms Ears: Reports No symptoms Nose: Reports No symptoms Mouth: Reports No symptoms Throat: Reports No symptoms Cardiovascular: Reports No symptoms Respiratory: Reports No symptoms Gastrointestinal: Reports Abdominal pain Genitourinary: Reports No Symptoms Musculoskeletal: Reports No symptoms Endocrine: Reports No symptoms Hematology: Reports No symptoms Immunology: Reports No symptoms Neurological: Reports No symptoms Psychiatric: Reports No symptoms Physical examination Most Recent Vital Signs: Most Recent Vital Signs Temperature 96.3 F L 01/13/23 14:12 Temperature Source Temporal Artery Scan 01/13/23 14:12 Temperature Source Infrared 01/13/23 11:20 Pulse Rate 70 01/13/23 14:12 Respiratory Rate 18 01/13/23 14:12 Blood Pressure 128/83 01/13/23 14:00 Blood Pressure Mean 98 01/13/23 14:00 Blood Pressure Left Arm 124/83 01/13/23 14:12 Blood Pressure Location Left Arm 01/13/23 14:00 Blood Pressure Position Sitting 01/13/23 14:12 O2 Sat by Pulse Oximetry 97 01/13/23 14:12 Oxygen Delivery Method Room Air 01/13/23 14:12 Height 5 ft 9 in 01/13/23 14:12 Weight 233 lb 11.04 oz 01/13/23 14:12 Telemetry Heart Rate 79 12/23/17 07:00 Appearance: Positive Well-appearing, Well-nourished, No Apparent Distress and Alert and Oriented x3 Skin: Positive Warm, Good Turgor and Good Color HEENT: Positive Normocephalic, Atraumatic and PERRLA Neck: Positive Supple and Midline Trachea Chest/Lungs: Positive Symmetrical With Equal Breath Sounds, Wheezes (expiratory) and Good Air Movement all 4 Lung Helms Heart: Positive RRR and Pulses Normal GI/: Positive Soft, Nontender, Bowel Sounds Normal, No Distention, No Organomegaly, Hernias (umbilical) and Other (muscle tightness to bilateral lower quadrants) Musculoskeletal: Positive Normal Gait and Station Extremities: Positive Intact Peripheral Pulses, Stable Joints Without Laxity and Good ROM in All Joints Neurological: Positive Sensation Intact, Motor intact, Reflexes Intact, Alert, Oriented and Muscle Strength 5/5 in Upper and Lower Extremities Bilaterally Psychiatric: Positive Oriented x4, Appropriate Mood, Appropriate Affect, Intact Memory, Good Short-Term Recall, Good Long-Term Recall, Normal Judgement and Normal Insight Labs This Visit Labs This Visit: Labs This Visit 01/13/23 11:40 WBC 5.96 RBC 4.77 Hgb 15.2 Hct 45.1 MCV 94.5 H MCH 31.9 H MCHC 33.7 RDW Coeff of Andreina 13.2 Plt Count 215 Immature Gran % (Auto) 0.2 Neut % (Auto) 35.3 L Lymph % (Auto) 44.8 [place] % (Auto) 12.6 H Eos % (Auto) 5.4 Baso % (Auto) 1.7 Neut # (Auto) 2.1 Lymph # (Auto) 2.7 [place] # (Auto) 0.8 Eos # (Auto) 0.3 Baso # (Auto) 0.1 Immature Gran # (Auto) 0.0 Sodium 136.9 Potassium 4.29 Chloride 103.3 Carbon Dioxide 27.5 Anion Gap 10.39 BUN 14.9 Creatinine 0.91 Estimated GFR (MDRD) 102.00 BUN/Creatinine Ratio 16.37 Glucose 96.4 Lactic Acid 0.97 Calcium 9.97 Total Bilirubin 0.73 AST 28.8 ALT 24.4 Alkaline Phosphatase 41.8 L Troponin I < 0.012 Total Protein 8.33 H Albumin 5.16 H Globulin 3.17 Albumin/Globulin Ratio 1.62 Lipase 90.5 Imaging Imaging: EXAM: CT ABDOMEN PELVIS WITH CONTRAST FINDINGS: The lung bases are clear. The liver is unremarkable. The gallbladder is normal. The adrenal glands are normal. There are two small low attenuation right renal lesions suggestive of cyst. The kidneys are unremarkable. Spleen is normal. Pancreas is unremarkable. The stomach is minimally distended. Small bowel in the abdomen pelvis is unremarkable. The appendix is normal. The colon is unremarkable. Urinary bladder is mildly distended. The prostate is unremarkable. There is no free air or free fluid. There is atherosclerotic disease. The osseous structures demonstrate mild degenerative disease. There is a fat-containing umbilical hernia with defect measuring 1.7 cm. IMPRESSION: 1. Fat containing umbilical hernia with no ground-glass or evidence of incarceration. 2. Small right renal cysts. 3. Calcific atherosclerotic disease. EXAM: ULTRASOUND OF THE RIGHT UPPER QUADRANT (LIMITED ABDOMEN) FINDINGS: Pancreas: Normal sonographic appearance of the head and body. Tail is partially obscured. Liver: The liver measures 11.7cm. No focal hepatic lesion. Main portal vein: Normal hepatopetal flow. Gallbladder: No cholelithiasis. No gallbladder wall thickening. Negative sonographic Krishnamurthy's sign. Common bile duct measures 9.6 mm. Aorta: Visualized portion without aneurysmal dilatation. IVC: Patent on color doppler. No abnormality on limited robins scale image. Other: No ascites. The right kidney measures 9.2 x 4.5 x 3.4 cm. No stones or hydronephrosis. IMPRESSION: 1. Normal right upper quadrant abdomen ultrasound. Review Statement Review Statement: I have independently reviewed and interpreted the labs/EKGs/imaging that were ordered by the ER provider. I have reviewed all outside records that are available currently in our EMR including imaging/notes/labs from previous visits. Plan Plan: 1. Intractable Abdominal Pain - unknown origin, CT abd/pelv negative, US negat peggy, lipase negative, has had umbilical hernia x 10 years, appears muscle related due to this, toradol prn, ordered 1 dose steroids to see if improvement, simethicone ordered to determine if gas related as well 2. Umbilical Hernia - determined cosmetic need for surgery 10 years ago and was not covered by insurance at this time, discussed need for PCP referral to surgeon upon discharge due to increased pain to the area 3. Hypertension - chronic, stable, continue home medications 4. COPD - chronic, not in exacerbation, may use prn inhaler, monitor 5. Hyperlipidemia - chronic, continue home medications DVT Prophylaxis: Up ad kelly Time Spent: Greater than 80 minutes spent with patient, 50% of the time spent with this patient was devoted to counseling and coordination of care. Advanced [facility] Plannin minutes spent discussing advance care planning. Smoking Cessation: 5 minutes spent discussing smoking cessation. Disposition: Admit to: Med/surg Observation Full Code Discussed Plan of Care with Dr. Kade Jaffe. Medications Medication Orders: Medications Ordered Category Date Time Status Acetaminophen [Tylenol] Meds 01/13/23 13:58 Active 650 mg PO Q4H PRN Amlodipine Besylate [Norvasc] Meds 01/14/23 09:00 Ordered 5 mg PO BEDTIME Atorvastatin Calcium [Lipitor] Meds 01/14/23 09:00 Ordered 80 mg PO QDAY Bisoprolol Fumarate [Zebeta] Meds 01/14/23 09:00 Ordered 10 mg PO DAILY Escitalopram Oxalate [Lexapro] Meds 01/14/23 09:00 Ordered 20 mg PO DAILY Ketorolac Tromethamine [Toradol] Meds 01/13/23 13:58 Active 15 mg IVP Q6HR PRN Losartan Potassium [Cozaar] Meds 01/14/23 09:00 Ordered 100 mg PO DAILY Methylprednisolone Sod Succ/Pf [Solu-Medrol 125 mg] Meds 01/13/23 15:14 Once 40 mg IVP ONCE ONE Ondansetron HCl/Pf [Zofran 4 mg/2 ml] Meds 01/13/23 13:58 Active 4 mg IVP Q6H PRN Simethicone [Mylicon] Meds 01/13/23 14:32 Once 160 mg PO ONCE ONE fenofibrate nanocrystallized Meds 01/14/23 09:45 Ordered 145 mg PO QDAY
[2023-01-13 16:19] LABS: BILIRUBIN,URINE Negative (NEGATIVE); CLARITY,URINE Clear (CLEAR); COLOR,URINE Yellow (YELLOW); GLUCOSE, URINE (UA) Negative (NEGATIVE); KETONES,URINE Negative (NEGATIVE); LEUKOCYTE ESTERASE ,URINE Negative (NEGATIVE); NITRITE,URINE Negative (NEGATIVE); PROTEIN,URINE Negative (NEGATIVE); URINE, BLOOD Negative (NEGATIVE); UROBILINOGEN,URINE 0.2 (0.2)
[2023-01-13 16:20] VITALS: BMI 34.4
[2023-01-13] MEDS: TORADOL IVP PRN (20:35)
[2023-01-13] MEDS ORDERED: REGLAN IVP PRN (20:36)
[2023-01-14] MEDS: TORADOL IVP PRN (01:33)
[2023-01-14 01:34] VITALS: PULSE 77; RESP 16
[2023-01-14 05:11] LABS: BASOPHILS % (AUTO) 0.4 % (0.0-3.0); EOSINOPHILS % (AUTO) 0.1 % (0.0-7.0); HEMATOCRIT 44.9 % (42.0-52.0); HEMOGLOBIN 15.1 g/dl (14.0-18.0); IMMATURE GRANULOCYTE % (AUTO) 0.4 % (0.0-5.0); LYMPHOCYTES % (AUTO) 12.2 (10.0-50.0); MEAN CORPUSCULAR HEMOGLOBIN 31.6 pg (27.0-31.0); MEAN CORPUSCULAR HGB CONC 33.6 (31.8-35.4); MEAN CORPUSCULAR VOLUME 93.9 fl (80.0-94.0); MONOCYTES # (AUTO) 0.4 K/uL (0.4-2.0); MONOCYTES % (AUTO) 4.8 (0-10); NEUTROPHILS # (AUTO) 6.8 K/ul (2.0-6.9); NEUTROPHILS % (AUTO) 82.1 % (42.2-75.2); PLATELET COUNT 222 10^3/uL (140-440); RDW COEFFICIENT OF VARIATION 12.9 % (11.6-14.8); RED BLOOD COUNT 4.78 10^6/ul (4.70-6.10)
[2023-01-14 05:22] VITALS: BP 131/87; TEMP 96.2
[2023-01-14 05:24] LABS: ALBUMIN 4.99 g/dL (3.5-5.0); ALKALINE PHOSPHATASE 38.9 U/L (56-119); ASPARTATE AMINO TRANSFERASE 30.1 U/L (17-59); BILIRUBIN,TOTAL 0.62 mg/dL (0.2-1.3); BLOOD UREA NITROGEN 18.9 mg/dL (9-20); CALCIUM 9.69 mg/dL (8.4-10.2); CARBON DIOXIDE 27.4 mmol/L (22-30.0); CHLORIDE 102.1 mmol/L (98-107); CREATININE 1.06 mg/dL (0.60-1.10); GLUCOSE 138.4 mg/dL (74-106); POTASSIUM 5.07 mmol/L (3.5-5.1); SODIUM 135.3 mmol/L (134.5-145); TOTAL PROTEIN 7.92 g/dL (6.3-8.2)
[2023-01-14] MEDS ORDERED: COZAAR PO SCH (09:00)
[2023-01-14] MEDS ORDERED: LIPITOR PO SCH (09:00)
[2023-01-14] MEDS ORDERED: TRIGLIDE PO SCH (09:00)
[2023-01-14] MEDS ORDERED: ZEBETA PO SCH (09:00)
[2023-01-14] MEDS ORDERED: LEXAPRO PO SCH (09:00)
--- NOTE | 2023-01-14 09:35 | DCSUM ---
Admission Date Admission Date: 01/13/23 Discharge Date Discharge Date: 01/14/23 Admission Diagnosis Admission Diagnosis: 1. Intractable abdominal pain Discharge Diagnosis Discharge Diagnosis: 1. Intractable Abdominal Pain, improved 2. Umbilical Hernia, not incarcerated 3. Hypertension, chronic 4. COPD, chronic 5. Hyperlipidemia, chronic Hospital Provider Hospital Provider: NATALIE WILSON PA-C, [facility] Primary Care Physician Primary Care Physician: PARVEEN JAFFE MD Summary of History and Physical Summary of History and Physical: 62-year-old male presented to the ER with complaints of lower abdominal pain. Patient states that he developed the pain suddenly at rest after working. Describes the pain as sharp and stabbing. It is intermittent. No aggravating or alleviating factors. States that he works for the [employer] and is very active. 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 Patient has a history of an umbilical hernia x10 years. States that he has seen a surgeon in the past but the surgeon told him that it would be more cosmetic than medical at that time because he was not having any problems and told him to come back when it did become an issue. He denies any fever, nausea, vomiting, belching, hiccups, or gas. Also denies any shortness of breath, chest pain, back pain, flank pain. Denies any urinary symptoms. He was given a dose of morphine in the ER which did not control his pain. He was then given a dose of Dilaudid that mildly improved his pain but pain is still present at this time. Hospital Course Subjective: Patient's CT showed the hernia but no incarceration. RUQ ultrasound normal. Labs unremarkable. Pt's pain improved with reglan and toradol. By 01/14 he was feeling better, able to tolerate PO diet. Had a BM this morning. Was ambulatory down the hallways without difficulty and showered himself. Still has some discomfort and specifically pain when pressing on hernia, but otherwise much better compared to yesterday. He hasn't had a consult regarding his hernia in years. Referral sent to [facility]. Discussed tylenol prn for pain, will send in a few norco tabs for breakthrough pain but encouraged patient to take stool softeners if he requires the norco. Constipation could worsen his pain. He understands plan of care. Work note given. F/u with pcp next week. Patient and agreeable to dori n of care. Appearance: Pleasant, No Apparent Distress, Alert, Well-appearing and Well- nourished HEENT: MMM and Supple CVS: No Murmur Abdomen: Soft, No Distention and Other (Overall nontender except specifically umbilical hernia. No discoloration noted. Tried to reduce it but patient did not tolerate it due to pain. ) Respiratory: No Dyspnea Extremities: No Edema Vital Signs: Most Recent Vital Signs Temperature 96.2 F L 01/14/23 05:21 Temperature Source Tympanic 01/14/23 05:21 Temperature Source Infrared 01/13/23 11:20 Pulse Rate 77 01/14/23 05:21 Respiratory Rate 16 01/14/23 05:21 Blood Pressure 131/87 01/14/23 05:21 Blood Pressure Mean 101 01/14/23 05:21 Blood Pressure Left Arm 124/83 01/13/23 14:12 Blood Pressure Location Left Arm 01/14/23 05:21 Blood Pressure Position Supine 01/14/23 05:21 O2 Sat by Pulse Oximetry 93 L 01/14/23 05:21 Oxygen Delivery Method Room Air 01/14/23 05:21 Height 5 ft 9 in 01/13/23 14:12 Weight 233 lb 11.04 oz 01/13/23 14:12 Telemetry Heart Rate 79 12/23/17 07:00 Imaging: EXAM: CT ABDOMEN PELVIS WITH CONTRAST FINDINGS: The lung bases are clear. The liver is unremarkable. The gallbladder is normal. The adrenal glands are normal. There are two small low attenuation right renal lesions suggestive of cyst. The kidneys are unremarkable. Spleen is normal. Pancreas is unremarkable. The stomach is minimally distended. Small bowel in the abdomen pelvis is unremarkable. The appendix is normal. The colon is unremarkable. Urinary bladder is mildly distended. The prostate is unremarkable. There is no free air or free fluid. There is atherosclerotic disease. The osseous structures demonstrate mild degenerative disease. There is a fat-containing umbilical hernia with defect measuring 1.7 cm. IMPRESSION: 1. Fat containing umbilical hernia with no ground-glass or evidence of incarceration. 2. Small right renal cysts. 3. Calcific atherosclerotic disease. EXAM: ULTRASOUND OF THE RIGHT UPPER QUADRANT (LIMITED ABDOMEN) FINDINGS: Pancreas: Normal sonographic appearance of the head and body. Tail is partially obscured. Liver: The liver measures 11.7cm. No focal hepatic lesion. Main portal vein: Normal hepatopetal flow. Gallbladder: No cholelithiasis. No gallbladder wall thickening. Negative sonographic Krishnamurthy's sign. Common bile duct measures 9.6 mm. Aorta: Visualized portion without aneurysmal dilatation. IVC: Patent on color doppler. No abnormality on limited robins scale image. Other: No ascites. The right kidney measures 9.2 x 4.5 x 3.4 cm. No stones or hydronephrosis. IMPRESSION: 1. Normal right upper quadrant abdomen ultrasound. Lab Results Last 24 Hours: 01/14/23 01/13/23 01/13/23 04:45 15:45 11:40 WBC 8.30 5.96 RBC 4.78 4.77 Hgb 15.1 15.2 Hct 44.9 45.1 MCV 93.9 94.5 H MCH 31.6 H 31.9 H MCHC 33.6 33.7 RDW Coeff of Andreina 12.9 13.2 Plt Count 222 215 Immature Gran % (Auto) 0.4 0.2 Neut % (Auto) 82.1 H 35.3 L Lymph % (Auto) 12.2 44.8 Harmon % (Auto) 4.8 12.6 H Eos % (Auto) 0.1 5.4 Baso % (Auto) 0.4 1.7 Neut # (Auto) 6.8 2.1 Lymph # (Auto) 1.0 2.7 Harmon # (Auto) 0.4 0.8 Eos # (Auto) 0.0 0.3 Baso # (Auto) 0.0 0.1 Immature Gran # (Auto) 0.0 0.0 Sodium 135.3 136.9 Potassium 5.07 4.29 Chloride 102.1 103.3 Carbon Dioxide 27.4 27.5 Anion Gap 10.87 10.39 BUN 18.9 14.9 Creatinine 1.06 0.91 Estimated GFR (MDRD) 86.00 102.00 BUN/Creatinine Ratio 17.83 16.37 Glucose 138.4 H 96.4 Lactic Acid 0.97 Calcium 9.69 9.97 Total Bilirubin 0.62 0.73 AST 30.1 28.8 ALT 25.0 24.4 Alkaline Phosphatase 38.9 L 41.8 L Troponin I < 0.012 Total Protein 7.92 8.33 H Albumin 4.99 5.16 H Globulin 2.93 3.17 Albumin/Globulin Ratio 1.70 1.62 Triglycerides 196.6 H Cholesterol 212.3 H LDL Cholesterol, Calc 121 VLDL Cholesterol 39 H HDL Cholesterol 51.5 Cholesterol/HDL Ratio 4.1 L Lipase 90.5 Urine Color Yellow Urine Clarity Clear Urine pH 6.0 Ur Specific [place] 1.020 Urine Protein Negative Urine Glucose (UA) Negative Urine Ketones Negative Urine Blood Negative Urine Nitrite Negative Urine Bilirubin Negative Urine Urobilinogen 0.2 Ur Leukocyte Esterase Negative Discharge Instructions Discharge Planning: Discharge Planning > 60 minutes Discussed plan of care with Dr. Carlyle Jaffe. Discharge Medications: Medications at Discharge (Home Meds & RX) amlodipine 5 mg tablet (Norvasc) 5 mg PO BEDTIME #90 tabs 09/25/22 atorvastatin 80 mg tablet 80 mg PO QDAY #90 tabs 09/25/22 bisoprolol fumarate 5 mg tablet 10 mg PO DAILY #90 tabs 09/25/22 escitalopram oxalate 20 mg tablet 20 mg PO DAILY #90 tabs 09/25/22 fenofibrate nanocrystallized 145 mg tablet 145 mg PO QDAY #90 tabs 09/25/22 losartan 100 mg tablet 100 mg PO DAILY #90 tabs 09/25/22 hydrocodone 5 mg-acetaminophen 325 mg tablet 1 tab PO Q12H PRN pain (scale score 7-10) #6 tabs 01/14/23 Discharge Plan Discharge Discharge Orders: Discharge Patient (ONCE); Ordered 01/14/23 Ordered By: NATALIE WILSON Activity Restrictions/Additional Instructions: DISCHARGE TO HOME DIET: PROGRESS TOLERATED ACTIVITY: TOLERATED F/U WITH DR. JAFFE NEXT WEEK. F/U WITH GI OR GEN SURGERY, REFERRAL INITIATED BY CASE MANAGEMENT PRESCRIPTIONS: NORCO FOR BREAK THROUGH PAIN IF TAKING NORCO, TAKE STOOL SOFTENERS WELL YOU HAVE A FOLLOW UP APPOINTMENT WITH DR JAFFE'S OFFICE ON January AT 10AM. SHOULD YOU HAVE ANY QUESTIONS OR NEED TO RESCHEDULE YOU CAN CONTACT THEIR OFFICE AT [phone]. A GI REFERRAL HAS BEEN MADE TO DR. HUNTER'S OFFICE AT [facility]. THEY ARE REVIEWING THE REFERRAL AND WILL CONTACT YOU WITH AN APPOINTMENT. WE ENCOURAGE YOU TO REACH OUT TO THEM IF YOU DO NOT HEAR FROM THEM SOON. THEIR PHONE NUMBER IS [phone] Instructions: Umbilical Hernia (GEN), Abdominal Pain (GEN) Patient Disposition: HOME SELF-CARE Prescriptions: New hydrocodone-acetaminophen 5-325 mg tablet 1 tab PO Q12H PRN (Reason: pain (scale score 7-10)) Qty: 6 0RF Continued amlodipine [Norvasc] 5 mg tablet 5 mg PO BEDTIME Qty: 90 1RF atorvastatin 80 mg tablet 80 mg PO QDAY Qty: 90 1RF bisoprolol fumarate 5 mg tablet 10 mg PO DAILY Qty: 90 1RF escitalopram oxalate 20 mg tablet 20 mg PO DAILY Qty: 90 1RF fenofibrate nanocrystallized 145 mg tablet 145 mg PO QDAY Qty: 90 1RF losartan 100 mg tablet 100 mg PO DAILY Qty: 90 1RF Did you review [place] [employer] for ALL controlled substances?: Yes Discussed opioids are addictive and Narcan is available by prescription or from pharmacy.: Yes Condition: Good
[2023-01-14] MEDS ORDERED: FENOFIBRATE NANOCRYSTALLIZED 145 MG PO SCH (09:45)
[2023-01-14] MEDS ORDERED: NORVASC PO SCH (21:00)
== END 2023-01-14 10:07 | disposition home or self-care (01) ==
LOC: MEDSURG B 11:15 → ED 11:15 → MEDSURG B 14:08
PROVIDERS: ADMIT Hospitalist; ATTEND Physician Assistant